=== PATIENT | male | born 1980 | race Caucasian/White ===

== ENCOUNTER → 2022-05-22 | Outpatient (CLI) | payer OTHER, SELFPAY ==
--- NOTE | 2022-05-22 13:45 | RAD_ITS ---
STUDY: X-RAY CHEST REASON FOR EXAM: Male, 41 years old. Evaluation. Shortness of breath. TECHNIQUE: None. COMPARISON: None. FINDINGS: The lungs are clear and expanded. There is no demonstrated pleural abnormality. Normal size heart. Normal mediastinum and flavio. Normal visualized pulmonary arteries. Normal visualized aortic arch and descending thoracic aorta. Normal visualized thoracic spine. Normal visualized ribs, clavicles, and shoulders. There is no demonstrated abnormality of the visualized soft tissue structures of the upper abdomen. RAD/Chest PA and Lateral IMPRESSION: Normal x-ray examination of the chest. Electronically Signed: Cesario Velazquez, at 9:19 EST ,
--- NOTE | 2022-05-23 09:08 | PFT ---
INTRODUCTION: The patient is a 41-year-old male who presents for pulmonary function studies secondary to a diagnosis of shortness of breath. Respiratory therapy reported good patient effort. Bronchodilators were used during testing. INTERPRETATION: Forced expiration spirometry demonstrates no evidence of a large airways obstructive ventilatory defect. There was no significant response to aerosolized bronchodilators. Spirograms are of good quality and plateau normally. Body plethysmography was performed and revealed a decreased TLC to 5.16 L, 69% of predicted, indicative of a moderate restrictive ventilatory impairment. Diffusing capacity by single breath CO is within normal limits. IMPRESSION: Moderate restrictive ventilatory impairment with preserved diffusing capacity.
== END | disposition home or self-care (01) ==
DX: R06.02 Shortness of breath (principal)
CPT/HCPCS: 71046; 94060; 94726; 94729

== ENCOUNTER 2023-08-23 11:41 | Emergency (ER) | payer BC, SELFPAY ==
[2023-08-23 11:42] VITALS: BP 140/97; PULSE 98; RESP 18; TEMP 36.4; O2SAT 98; BMI 28.0
--- NOTE | 2023-08-23 12:16 | ED.VIS.LOWEX ---
HPI History of Present Illness HPI Narrative: Patient presents with redness and swelling to his left lower leg that has been getting worse over the past few days. Patient went to the urgent care yesterday and was given a prescription for Bactrim. Patient states he was told that if it did not look any better today he should come to the emergency department to have it evaluated. Patient denies any fevers or chills. Patient denies any discharge or drainage. Patient describes his pain as dull. Patient states it is slightly worse with ambulation. Patient denies any paresthesias or weakness. Chief Complaint: Wound Informant: patient Onset/Context/Timing Onset: Days Context: Gradual Onset Timing: Continuous Quality of Pain: Dull Location: Left lower leg Worsened by: Ambulation Relieved by: Nothing Associated Symptoms Associated Symptoms: Negative for Parasthesia, Weakness or Loss of Funtion PFSH PFSH Medical History (Updated 08/23/23 @ 13:[address] Sterling Laguerre DO) Neuropathy Medical History no medical history Home Medications ?Medication ?Instructions ?Recorded ?Last Taken ?Type cephalexin 500 mg capsule 500 mg PO Q6 #40 CAPSULES 08/23/23 Unknown Rx Allergy/AdvReac Type Severity Reaction Status Date / Time Penicillins (PCN) Allergy PT UNSURE Verified 08/23/23 11:41 OF REACTION Surgical History (Updated 08/23/23 @ 12:[address] Sterling Laguerre DO) Hx of vasectomy Social History Smoking Status: Former smoker ROS ROS ED Constitutional Constitutional ED: Denies chills or fever(s) Eyes Eyes: Denies blurry vision or change in vision ENT ENT ED: Denies rhinorrhea or sore throat Cardiovascular Cardiovascular: Denies chest pain or palpitations Respiratory/Chest Respiratory/Chest: Denies cough or dyspnea Gastrointestinal Gastrointestinal: Denies nausea or vomiting Genitourinary Genitourinary ED: Denies dysuria or hematuria Musculoskeletal Musculoskeletal: Denies back pain or neck pain Integumentary Reports rash; Denies abscess Neurologic Neurologic: Denies headache(s) or weakness Allergic/Immunologic Allergic/Immunologic ED: Denies mouth swelling or urticaria EXAM Physical Exam Const Vital Signs: 08/23/23 11:42 Temperature 97.6 F L Temperature Source Temporal Pulse Rate 98 Respiratory Rate 18 Blood Pressure 140/97 H Blood Pressure Mean 111 Pulse Ox 98 Oxygen Delivery Method Room Air Positive well nourished and well developed General Appearance ED: well developed HEENT Reports moist mucous membranes Neck full ROM and supple Extremity full ROM Neuro oriented x3, CN's II-XII intact bilaterally, moves all extremities and no sensory deficits noted Sensorium / Orientation: alert Motor Exam: strength 5/5 throughout Psych mental status grossly normal Skin Skin Narrative: There is a small puncture wound over the anterior aspect of the left lower leg. There is some mild surrounding erythema. There is erythema and warmth distal to this. There is no fluctuance. There is no discharge or drainage. There is no evidence of any abscess. MDM MDM MDM Narrative Medical decision making narrative: Differential diagnosis includes cellulitis and wound infection. CBC will be obtained to assess for leukocytosis and anemia. Basic metabolic profile will be obtained to assess for electrolyte abnormality and renal function. Lab Data Attestation: I reviewed the patient's lab results. Lab results narrative: CBC was reviewed and was within normal limits. Basic metabolic profile was reviewed and was essentially within normal limits. Labs: Laboratory Results - last 24 hr 08/23/23 12:30 WBC 7.9 RBC 4.56 L Hgb 14.1 Hct 41.2 MCV 90.4 MCH 30.9 MCHC 34.2 RDW Std Deviation 42.5 RDW Coeff of Cecilia 12.9 Plt Count 274 MPV 9.0 Immature Gran % (Auto) 0.100 Neut % (Auto) 56.6 Lymph % (Auto) 33.2 [place] % (Auto) 6.7 Eos % (Auto) 2.9 Baso % (Auto) 0.5 Absolute Neuts (auto) 4.5 Absolute Lymphs (auto) 2.63 Nucleated RBC % 0 Sodium 140 Potassium 3.3 L Chloride 112 H Carbon Dioxide 23.0 Anion Gap 5 BUN 13 Creatinine 1.17 Estim Creat Clear Calc 94.17 Est GFR (MDRD) Af Amer 89 Est GFR (MDRD) Non-Af 73 BUN/Creatinine Ratio 11.1 Glucose 123 H Calcium 9.1 Treatment and Re-Evaluation Narrative: Patient was given a dose of Ancef here. (Patient states that his father and sister have a penicillin allergy and he was always told that he most likely would have a penicillin allergy. Patient states that his father is similar to have a rash to penicillin.) Patient had no adverse reaction to the Ancef. Patient was advised of his findings. Patient was given a prescription for Keflex. Patient was instructed to stop taking the Bactrim. Patient was instructed to follow-up with his primary care physician in 5 to 7 days. Patient was instructed to return if worse in any way. Patient understood and was agreeable with the plan. All questions were answered. Discharge Plan Triage Chief Complaint: Wound ED Provider: Sterling Laguerre Dx/Rx/DC Orders Clinical Impression: Cellulitis of left lower leg Instructions: ED Cellulitis Prescriptions: New cephalexin 500 mg capsule 500 mg PO Q6 Qty: 40 0RF Primary Care Provider: CARMEN OCHOA Referrals: JAZIEL HULL [Other] CARMEN OCHOA [Other] - 5-7 Days Activity Restrictions/Additional Instructions: You may stop taking the previous antibiotic. Follow-up with your primary care physician in 5 to 7 days for recheck. This may take several days to start getting better. Print Language: Greenlandic Disposition Disposition: Home, Self Care
[2023-08-23 12:40] LABS: Absolute Lymphocyte Count 2.63 X10^3/uL (0.83-4.51); Absolute Neutrophil Count 4.5 X10^3/uL (2.0-7.7); Basophil# 0.04 X10^3/uL; Basophil% 0.5 % (0-1); Eosinophil# 0.23 X10^3/uL; Eosinophils% 2.9 % (0-5); Hematocrit 41.2 % (40-54); Hemoglobin 14.1 g/dL (13.0-16.5); Lymphocyte # 2.63 X10^3/ul (0.83-4.51); Lymphocyte % 33.2 % (19-41); Mean Corp Hgb Conc 34.2 g/dL (32-36); Mean Corpuscular Hgb 30.9 pg (27.0-32.0); Mean Corpuscular Volume 90.4 fL (80-94); Monocyte# 0.53 X10^3/uL; Monocyte% 6.7 % (0-10); NRBC Flagged by Analyzer 0 % (0-5); Neutrophil # 4.49 X10^3/uL (2.7-7.7); Neutrophil % 56.6 % (47-70); Platelet Count 274 K/mm3 (150-450); RBC Distribution Width CV 12.9 % (11.6-14.6); RBC Distribution Width SD 42.5 fl (35.1-43.9); Red Blood Count 4.56 M/mm3 (4.6-6.2); White Blood Count 7.9 K/mm3 (4.4-11.0)
[2023-08-23] MEDS: Cefazolin 1 GM/50 ML BAG IV (12:40)
[2023-08-23 12:54] LABS: Anion Gap 5 (5-15); BUN 13 mg/dL (7-18); BUN/Creat Ratio 11.1 RATIO (10-20); Calcium,Total 9.1 mg/dL (8.5-10.1); Chloride 112 mmol/L (98-107); Creatinine, Serum 1.17 mg/dL (0.70-1.30); EST Glomerular Filtration Rate 73 mL/min (>60); Est Glom Filt Rate - Afr Amer 89 mL/min (>60); Estimated Creatinine Clearance 94.17 ml/min; Glucose 123 mg/dL (74-106); Potassium 3.3 mmol/L (3.5-5.1); Sodium Level 140 mmol/L (136-145)
[2023-08-23 13:50] VITALS: BP 136/99; PULSE 82; RESP 16; O2SAT 99
[2023-08-23 14:22] VITALS: BP 128/76; PULSE 64; RESP 14; TEMP 36.4; O2SAT 98
== END 2023-08-23 14:23 | disposition home or self-care (01) ==
PROVIDERS: Emergency Provider Emergency Medicine; Visit Provider Emergency Medicine
DX: L03.116 Cellulitis of left lower limb (principal); Z87.891 Personal history of nicotine dependence
CPT/HCPCS: 80048; 85025; 99283; J7050; A4216